=== PATIENT | male | born 1985 | race African-American/Black ===

== ENCOUNTER 2024-11-24 15:35 | Emergency (ER) | payer MEDICAID ==
[~2024-11-24] VITALS: Ht 363.2 cm; Wt 90.0 kg
[2024-11-24 15:37] VITALS: O2SAT 99
[2024-11-24 16:42] LABS: EOSINOPHILS % 7.1 % (0.0-5.0); HEMATOCRIT. 41.5 % (42.0-52.0); HEMOGLOBIN. 13.2 g/dL (14.0-18.0); LYMPHOCYTES % 28.7 % (20.0-50.0); MEAN CORPUSCULAR HGB CONC 31.7 g/dL (31.0-37.0); MEAN CORPUSCULAR VOLUME 91.4 fL (80.0-94.0); MEAN PLATELET VOLUME 7.7 fl (7.4-10.4); MONOCYTES % 5.2 % (2.0-8.0); PLATELET 211 x1000/uL (130-400); RED BLOOD CELL COUNT 4.54 mill/uL (4.7-6.1); RED CELL DISTRIBUTION WIDTH 13.7 % (11.6-14.6)
[2024-11-24 16:49] LABS: CARBON DIOXIDE 24 mEq/L (21-32); CHLORIDE 108 mEq/L (98-107); POTASSIUM 3.5 mEq/L (3.5-5.1); SODIUM 141 mEq/L (136-145)
[2024-11-24 16:50] LABS: CALCIUM 9.4 mg/dL (8.7-10.4)
[2024-11-24 16:54] LABS: D-DIMER < 0.19 mg/L FEU (<0.50); PARTIAL THROMBOPLASTIN TIME 26.5 sec (23.4-31.0); PROTHROMBIN TIME 11.2 sec (9.6-11.0)
[2024-11-24 16:55] LABS: CREATININE 1.3 mg/dL (0.6-1.3); GLUCOSE 100 mg/dL (70-105); TROPONIN I HIGH SENSITIVITY 6 ng/L (3.0-53); UREA NITROGEN BLOOD 15 mg/dL (9-23)
[2024-11-24 16:56] LABS: ALANINE AMINOTRANSFERASE 24 IU/L (10-49); ASPARTATE AMINOTRANSFERASE 18 IU/L (<34)
[2024-11-24 16:57] LABS: ALBUMIN 4.7 g/dL (3.2-4.8); BILIRUBIN DIRECT 0.2 mg/dL (<=3.0); BILIRUBIN TOTAL 0.7 mg/dL (0.1-1.0); PROTEIN TOTAL 7.3 g/dL (6.0-8.3)
[2024-11-24 16:59] LABS: ETHANOL BLOOD < 10 mg/dL (<10); THYROID STIMULATING HORMONE 1.96 uIU/mL (0.55-4.78)
[2024-11-24] MEDS ORDERED: NEBI2.5T2 MT (18:35)
[2024-11-24 18:55] LABS: TROPONIN I HIGH SENSITIVITY 8 ng/L (3.0-53)
[2024-11-24 19:46] VITALS: BP_DIAS 75; PULSE 83; RESP 18; TEMP 36.50292; O2SAT 99
[2024-11-24 19:50] VITALS: BP_SYST 142
== END 2024-11-24 20:29 | disposition home or self-care (01) ==
LOC: ER 15:35
DX: I47.10 Supraventricular tachycardia, unspecified (principal); R00.2 Palpitations; I10 Essential (primary) hypertension; Z79.899 Other long term (current) drug therapy; Z86.79 Personal history of other diseases of the circulatory system
CPT/HCPCS: 36415; 71045; 80048; 80076; 80320; 83880; 84443; 84484; 85025; 85379; 93005; 99285; G0480